=== PATIENT | female | born 1955 | race Caucasian/White ===

== ENCOUNTER 2020-11-11 20:00 | Emergency (ER) | payer OTHER ==
[~2020-11-11] VITALS: Ht 170.2 cm; Wt 79.9 kg
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
--- NOTE | 2020-11-11 22:01 | NUR ---
PT RESTING IN [facility]. WAITING RESULTS OF IMAGING
[2020-11-11 22:34] VITALS: BP 123/85
== END 2020-11-11 22:34 | disposition home or self-care (01) ==
LOC: ED 20:35
DX: S39.012A Strain of muscle, fascia and tendon of lower back, initial encounter (principal); V49.49XA Driver injured in collision with other motor vehicles in traffic accident, initial encounter; Z90.710 Acquired absence of both cervix and uterus; Z90.722 Acquired absence of ovaries, bilateral; Z88.0 Allergy status to penicillin; Z88.8 Allergy status to other drugs, medicaments and biological substances; Y93.89 Activity, other specified; Y92.410 Unspecified street and highway as the place of occurrence of the external cause; Y99.8 Other external cause status
CPT/HCPCS: 72110; 99283